=== PATIENT | female | born 1990 ===

== ENCOUNTER 2025-04-14 16:47 | Outpatient (CLI) | payer SELFPAY ==
[2025-04-16 14:46] LABS: TB Interpretation Positive (Negative)
== END 2025-04-14 16:48 | disposition home or self-care (01) ==
LOC: LBO 16:49
PROVIDERS: Visit Provider Nurse Practitioner Family
DX: Z02.1 Encounter for pre-employment examination (principal)
CPT/HCPCS: 36415; 86480

== ENCOUNTER 2025-04-21 16:02 | Outpatient (CLI) | payer SELFPAY ==
--- NOTE | 2025-04-21 15:33 | DI.RAD_ITS ---
Exam(s) XR CHEST 2V PA LATERAL EXAM: XR CHEST 2V PA LATERAL CLINICAL HISTORY: + [employer] tb test R76.12 TECHNIQUE: 2D digital imaging was performed of the chest. Two images were obtained. PA and lateral views were obtained. COMPARISON: No exams were available for comparison FINDINGS: MEDIASTINUM: Normal. HEART: Normal. PULMONARY VASCULATURE: Normal. LUNGS: Clear. PLEURAL SPACE: No pleural effusion or pneumothorax. BONE:Within normal limits for the patient's age. OTHER FINDINGS:Normal. IMPRESSION: No acute pulmonary findings. DATA REPOSITORY: RADIATION DOSE DELIVERED:
== END 2025-04-21 16:22 ==
PROVIDERS: Visit Provider Nurse Practitioner Family
DX: R76.12 Nonspecific reaction to cell mediated immunity measurement of gamma interferon antigen response without active tuberculosis (principal)
CPT/HCPCS: 71046